=== PATIENT | male | born 1985 | race Caucasian/White ===

== ENCOUNTER 2017-03-13 05:38 | Day surgery (SDC) | payer OTHER ==
[2017-03-13] MEDS ORDERED: LIDOCAINE 1% 2 ML INJ ONE (06:04)
[2017-03-13] MEDS ORDERED: LIDOCAINE 1% 5 ML SDV ID PRN (06:15)
[2017-03-13] MEDS ORDERED: LR 1,000 ML IV ONE (06:15)
[2017-03-13] MEDS ORDERED: EPINEPHrine 30 MG/30 ML MDV ONE (06:50)
[2017-03-13] MEDS ORDERED: BUPIVACAINE/EPI 0.25% 30 ML SDV ONE (06:50)
[2017-03-13] MEDS ORDERED: ACETAMINOPHEN 500 MG TAB PO ONE (07:00)
[2017-03-13] MEDS ORDERED: ceFAZolin 2 GM/DEXTROSE 100 ML IV ONE (07:00)
[2017-03-13] MEDS ORDERED: PREGABALIN 150 MG CAP PO ONE (07:00)
[2017-03-13] MEDS ORDERED: MIDAZOLAM 2 MG/2 ML VIAL ONE (07:10)
[2017-03-13] MEDS ORDERED: fentaNYL 100 MCG/2 ML INJ ONE ×2 (07:24→10:53)
[2017-03-13] MEDS ORDERED: REMIFENTANIL HCL 1 MG VIAL ONE ×2 (07:24→09:29)
[2017-03-13] MEDS ORDERED: PROPOFOL 200 MG/20 ML VIAL ONE (07:25)
[2017-03-13] MEDS ORDERED: PROPOFOL/EMULSION 500 MG/50 ML BOTTLE IV ONE ×2 (07:25→09:29)
[2017-03-13] MEDS ORDERED: DEXAMETHASONE 4 MG/ML VIAL ONE (07:27)
[2017-03-13] MEDS ORDERED: ONDANSETRON 4 MG/2 ML VIAL ONE (07:27)
[2017-03-13] MEDS ORDERED: ROCURONIUM 50 MG/5 ML VIAL ONE (07:28)
[2017-03-13] MEDS ORDERED: LIDOCAINE 2% 5 ML SDV ONE (07:29)
[2017-03-13] MEDS ORDERED: PHENYLEPHRINE HCL 100 MCG/ML SYR ONE (07:47)
[2017-03-13] MEDS ORDERED: SCOPOLAMINE HYDROBROMIDE 1.5 MG PATCH TD ONE (08:06)
[2017-03-13] MEDS ORDERED: KETOROLAC 30 MG/1 ML SDV ONE (10:32)
[2017-03-13] MEDS ORDERED: OXYCODONE/APAP 5/325 TAB ONE (11:41)
== END 2017-03-13 12:55 | disposition home or self-care (01) ==
LOC: FSGY 05:38
PROVIDERS: ATTEND Orthopaedic Surgery Sports Medicine
PROC: 0SQ94ZZ Repair Right Hip Joint, Percutaneous Endoscopic Approach (ICD-10-PCS; principal; 2017-03-13 07:15)
DX: M25.851 Other specified joint disorders, right hip (principal); M24.151 Other articular cartilage disorders, right hip
CPT/HCPCS: 29914; 29916; 76001; C1769; C1713; J0690; J1100; J1885; J2250; J2370; J2405; J2704; J3010